=== PATIENT | female | born 1940 | race Caucasian/White ===

== ENCOUNTER 2016-05-03 11:00 | Inpatient (IN) | payer MEDICARE, BC ==
[2016-05-03] VITALS (8 sets, daily range): BP systolic 142–155; BP diastolic 68–87; PULSE 67–86; RESP 16–18; TEMP 97.3–98.1; O2SAT 96–99
[~2016-05-03] VITALS: Ht 154.9 cm; Wt 66.0 kg
[2016-05-03] MEDS ORDERED: HYDR-3516 PO (11:26)
--- NOTE | 2016-05-03 12:13 | PD ---
HPI Chief Complaint: Pain: Acute or Chronic Time Seen by Provider: 11:29 Travel History International Travel<30 days: No Contact w/Intl Traveler<30days: No Traveled to known affect area: No History of Present Illness HPI This is a 75-year-old female who is status post mechanical fall yesterday with a comminuted proximal humerus fracture who was seen yesterday at [facility] in [place]. The patient was discharged and told to find an outpatient orthopedic surgeon. The patient presents here today with complaints of severe pain. She states that she's been unable to obtain an orthopedic surgeon. She reports pain that's minimally relieved with the pain medicine she is prescribed. She denies any decreased sensation in her hand. She denies any other injuries. PFSH Past Medical History High Cholesterol: Yes Diminished Hearing: No Medical other: Yes (high cholesterol) Tetanus Vaccination: > 5 Years Influenza Vaccination: No ?: Not Menopausal: Yes Past Surgical History Surgical History: No Previous Surgery Social History Alcohol Use: No Tobacco Use: No Substance Use: No Allergies-Medications (Allergen,Severity, Reaction): Coded Allergies: No Known Allergies (Unverified , 05/03/16) Reported Meds & Prescriptions Reported Meds & Active Scripts Active Reported Hydrocodone-Acetaminophen 5-325 mg Tab 1 Tab PO Q6H PRN Review of Systems Except as stated in HPI: all other systems reviewed are Neg General / Constitutional: No: Fever, Chills HENT: No: Headaches, Neck Pain Cardiovascular: No: Chest Pain or Discomfort, Palpitations Respiratory: No: Shortness of Breath Gastrointestinal: No: Nausea, Vomiting, Abdominal Pain Musculoskeletal: Positive: Pain (right shoulder), No: Weakness Neurologic: No: Weakness, Sensory Disturbance Physical Exam Narrative GENERAL: Well-nourished, well-developed patient. SKIN: Warm and dry. HEAD: Normocephalic/atraumatic. EYES: No injection or drainage. NECK: Supple, trachea midline. CARDIOVASCULAR: Regular rate and rhythm without murmurs, gallops, or rubs. RESPIRATORY: Breath sounds equal bilaterally. No accessory muscle use. GASTROINTESTINAL: Abdomen soft, non-tender, nondistended. MUSCULOSKELETAL: Examination of the right shoulder, the patient has a sling in place. She is tender to touch in the proximal humerus distribution. There is deformity that looks suspicious for dislocation. NEUROLOGICAL: Awake and alert. Cranial nerves II through XII intact. Motor and sensory grossly within normal limits. Five out of 5 muscle strength in all muscle groups except right upper extremity which is in a sling. She does have equal joint cutter machine in her right hand.. Normal speech. Data Data Last Documented VS Vital Signs Date Time Temp Pulse Resp B/P Pulse Ox O2 Delivery O2 Flow Rate FiO2 05/03/16 12:45 97.8 78 17 142/71 99 Room Air Orders Shoulder, Limited(2vws) (05/03/16 12:13) Electrocardiogram (05/03/16 14:13) Complete Blood Count With Diff (05/03/16 14:13) Basic Metabolic Panel (Bmp) (05/03/16 14:13) Prothrombin Time / Inr (Pt) (05/03/16 14:13) Act Partial Throm Time (Ptt) (05/03/16 14:13) Urinalysis - C+S If Indicated (05/03/16 14:13) Chest, Single Ap (05/03/16 14:13) Type And Screen (05/03/16 14:13) Admit Order (Ed Use Only) (05/03/16 15:39) Labs Laboratory Tests Test 05/03/16 14:20 White Blood Count 9.3 TH/MM3 Red Blood Count 4.53 MIL/MM3 Hemoglobin 13.3 GM/DL Hematocrit 40.3 % Mean Corpuscular Volume 88.8 FL Mean Corpuscular Hemoglobin 29.3 PG Mean Corpuscular Hemoglobin 33.0 % Concent Red Cell Distribution Width 13.8 % Platelet Count 267 TH/MM3 Mean Platelet Volume 8.1 FL Neutrophils (%) (Auto) 72.1 % Lymphocytes (%) (Auto) 21.1 % Monocytes (%) (Auto) 6.6 % Eosinophils (%) (Auto) 0.0 % Basophils (%) (Auto) 0.2 % Neutrophils # (Auto) 6.7 TH/MM3 Lymphocytes # (Auto) 2.0 TH/MM3 Monocytes # (Auto) 0.6 TH/MM3 Eosinophils # (Auto) 0.0 TH/MM3 Basophils # (Auto) 0.0 TH/MM3 CBC Comment DIFF FINAL Differential Comment Prothrombin Time 11.3 SEC Prothromb Time International 1.0 RATIO Ratio Activated Partial 28.9 SEC Thromboplast Time Sodium Level 139 MEQ/L Potassium Level 4.1 MEQ/L Chloride Level 106 MEQ/L Carbon Dioxide Level 26.9 MEQ/L Anion Gap 6 MEQ/L Blood Urea Nitrogen 16 MG/DL Creatinine 0.57 MG/DL Estimat Glomerular Filtration 104 ML/MIN Rate Random Glucose 92 MG/DL Calcium Level 9.5 MG/DL Blood Type O POSITIVE Antibody Screen NEGATIVE Blood Bank Comment MDM Medical Decision Making Medical Screen Exam Complete: Yes Emergency Medical Condition: Yes Differential Diagnosis Fracture versus fracture dislocation versus dislocation only. Narrative Course 75-year-old female status post mechanical fall yesterday who was seen at [facility] and diagnosed with a comminuted proximal humerus fracture. The patient was discharged and told to find a orthopedic surgeon for follow up. The patient's made multiple calls and is unable to follow up with any orthopedic surgeon at this time. She comes here because of severe pain and concern that there may be dislocation. The patient's x-ray shows comminuted proximal humerus fracture involving the glenoid. The case was discussed with Dr. Phillip Boo who agrees patient should be admitted made nothing by mouth after midnight. He anticipates taking her to surgery tomorrow. This was discussed with both the patient and her family members and they're all agreeable for this. Diagnosis Primary Impression: right proximal comminuted humerus fracture Leo Padilla MD May 03, 2016 12:12
--- NOTE | 2016-05-03 13:10 | RADRPT ---
EXAM DATE/TIME: 05/03/2016 12:40 [facility] COMPARISON: No previous studies available for comparison. INDICATIONS : Fall. Right shoulder pain with limited mobility. MEDICAL HISTORY : None. SURGICAL HISTORY : None. ENCOUNTER: Initial ACUITY: 3 days PAIN SCORE: 9/10 LOCATION: Right proximal humerus FINDINGS: Two view examination of the right shoulder demonstrates comminuted fracture through the proximal alana brittany involving the head as well as the greater tuberosity. I do not see an obvious intra-articular ext ension at the humeral head does appear to be perched on the inferior aspect of the glenoid and may be partially dislocated. CONCLUSION: 1. Comminuted fracture through the humeral head/greater tuberosity. 2. I do not see obvious intra-articular extension on the 2 images provided. However, the humeral head is perched on the lower aspect of the glenoid and may be partially dislocated. Suhail Arriaza MD on May 03, 2016 at 12:49 Board Certified Radiologist. This report was verified electronically.
[2016-05-03 15:13] LABS: AUTOMATED NEUTROPHIL # 6.7 TH/MM3 (1.8-7.7); BASOPHIL % 0.2 % (0.0-2.0); HEMATOCRIT 40.3 % (35.0-46.0); HEMO FLAGS DIFF FINAL; LYMPH % 21.1 % (9.0-44.0); MEAN CELL VOLUME 88.8 FL (80.0-100.0); MEAN CORPUSCULAR HEMOGLOBIN 29.3 PG (27.0-34.0); MONO % 6.6 % (0.0-8.0); NEUT % 72.1 % (16.0-70.0); PLATELET COUNT 267 TH/MM3 (150-450); RED BLOOD COUNT 4.53 MIL/MM3 (4.00-5.30); RED CELL DISTRIBUTION WIDTH 13.8 % (11.6-17.2); WHITE BLOOD COUNT 9.3 TH/MM3 (4.0-11.0)
[2016-05-03 15:21] LABS: APTT (PATIENT) 28.9 SEC (24.3-30.1); PROTHROMBIN TIME - PATIENT 11.3 SEC (9.8-11.6)
[2016-05-03 15:22] LABS: BICARBONATE 26.9 MEQ/L (21.0-32.0); POTASSIUM 4.1 MEQ/L (3.5-5.1)
--- NOTE | 2016-05-03 15:52 | RADRPT ---
EXAM DATE/TIME: 05/03/2016 14:29 [facility] COMPARISON: SHOULDER RIGHT [facility] (2VWS), May 03, 2016, 12:40. INDICATIONS : Evaluate for pneumothorax, pneumonia or communicable disease. Preop chest for right shoulder surgery, right humeral head fracture MEDICAL HISTORY : Right humeral head fracture SURGICAL HISTORY : None. ENCOUNTER: Subsequent ACUITY: 1 day PAIN SCORE: 6/10 LOCATION: Bilateral chest FINDINGS: The heart is enlarged. The pulmonary vascular pattern is normal. The lungs are clear. There is an a cute fracture involving the right proximal humerus with minimal inferior displacement. There is no p neumothorax noted. CONCLUSION: 1. Cardiomegaly. 2. No acute focal pulmonary infiltrate or pulmonary vascular congestion. 3. Acute fracture involving the right proximal humerus with minimal inferior displacement. 4. No evidence of pneumothorax. Ede Ferrer MD on May 03, 2016 at 15:39 Board Certified Radiologist. This report was verified electronically.
--- NOTE | 2016-05-03 16:27 | HHI.HP ---
[facility] Service Family Medicine Primary Care Physician Non-Staff Admission Diagnosis right proximal humerus fracture/communuted Diagnoses: International Travel<30 Days: No Contact w/Intl Traveler<30days: No Known Affected Area: No History of Present Illness 75 y/o female with no significant PMHx presents to [facility] ED after suffering a fall. Last night 05/02/16, she was walking up a stair and tripped over her foot. She fell from a standing position and denies having a an outstretched arm. She never lost consciousness. She denies palpitations. She denies headaches at the current time. She says that she said it hit her head but not very hard. She has never broken a bone before. Last night, she did present to an outside emergency department, an x-ray was taken as well as a CT, which showed a fracture. She was supposed to schedule up as an outpatient with an orthopedic surgeon. Her pain was well not well controlled overnight with oral hydrocodone/ acetaminophen. Pain currently as a 10 out of 10. Pre-op: Able to walk "8 blocks," without getting short of breath, able to walk up a flight of stairs upcoming short of breath. (Gildardo Lema MD R2) Past Family Social History Past Medical History Only medications are multivitamins. High cholesterol, but refuses treatment. Past Surgical History Denies any previous surgeries, except for wisdom teeth. Denies problem with anesthesia. (Gildardo Lema MD R2) Allergies: Coded Allergies: No Known Allergies (Unverified , 05/03/16) Family History Noncontributory. Social History Denies recent tobacco use, denies alcohol use, denies illicit drug use. Moved here from [place] several years ago. (Gildardo Lema MD R2) Physical Exam Vital Signs Vital Signs Date Time Temp Pulse Resp B/P Pulse Ox O2 Delivery O2 Flow Rate FiO2 05/03/16 15:00 98.1 76 17 143/87 99 Room Air 05/03/16 12:45 97.8 78 17 142/71 99 Room Air 05/03/16 11:25 74 17 05/03/16 11:01 97.3 74 18 147/70 96 Room Air Physical Exam GENERAL: This is a well-nourished, well-developed patient. SKIN: No rashes, ecchymoses or lesions. HEAD: Atraumatic. Normocephalic. EYES: Pupils equal round and reactive. ENT: Nose without bleeding, purulent drainage or septal hematoma. NECK: Trachea midline. CARDIOVASCULAR: Regular rate and rhythm without murmurs, gallops, or rubs. RESPIRATORY: Clear to auscultation. GASTROINTESTINAL: Abdomen soft, non-tender, nondistended. MUSCULOSKELETAL: Right arm anteriorly displaced, abrasion on right forearm, NV intact moving all fingers, cap refill < 2 sec and brisk, full sensation. NEUROLOGICAL: Awake and alert. Cranial nerves II through XII intact. Motor and sensory grossly within normal limits. Five out of 5 muscle strength in all muscle groups. Normal speech. Laboratory Laboratory Tests Test 05/03/16 14:20 White Blood Count 9.3 Red Blood Count 4.53 Hemoglobin 13.3 Hematocrit 40.3 Mean Corpuscular Volume 88.8 Mean Corpuscular Hemoglobin 29.3 Mean Corpuscular Hemoglobin 33.0 Concent Red Cell Distribution Width 13.8 Platelet Count 267 Mean Platelet Volume 8.1 Neutrophils (%) (Auto) 72.1 Lymphocytes (%) (Auto) 21.1 Monocytes (%) (Auto) 6.6 Eosinophils (%) (Auto) 0.0 Basophils (%) (Auto) 0.2 Neutrophils # (Auto) 6.7 Lymphocytes # (Auto) 2.0 Monocytes # (Auto) 0.6 Eosinophils # (Auto) 0.0 Basophils # (Auto) 0.0 CBC Comment DIFF FINAL Differential Comment Prothrombin Time 11.3 Prothromb Time International 1.0 Ratio Activated Partial 28.9 Thromboplast Time Sodium Level 139 Potassium Level 4.1 Chloride Level 106 Carbon Dioxide Level 26.9 Anion Gap 6 Blood Urea Nitrogen 16 Creatinine 0.57 Estimat Glomerular Filtration 104 Rate Random Glucose 92 Calcium Level 9.5 Blood Type O POSITIVE Antibody Screen NEGATIVE Blood Bank Comment (Gildardo Lema MD R2) Result Diagram: 05/03/16 1420 05/03/16 1420 Imaging Last Impressions Shoulder X-Ray 05/03/16 1213 Signed Impressions: Service Date/Time: Tuesday, May 03, 2016 12:40 - CONCLUSION: 1. Comminuted fracture through the humeral head/greater tuberosity. 2. I do not see obvious intra-articular extension on the 2 images provided. However, the humeral head is perched on the lower aspect of the glenoid and may be partially dislocated. Suhail Arriaza MD (Gildardo Lema MD R2) Septic Shock Reassessment Heart: Regular rate and rhythm Lungs: Clear Skin: Warm Peripheral Pulses: Bounding Right Radial Bounding Left Radial Capillary Refill: <2 seconds (Gildardo Lema MD R2) Assessment and Plan Assessment and Plan 75 y/o female with PMHx of hypercholesterolemia presenting to [facility] ED after suffering a fall and landing on her right arm. Imaging showed a "comminuted fracture through the humeral head/greater tuberosity." The humeral head was also perched on the lower aspect of the glenoid, and may be partially dislocated. Orthopedic surgery was consulted, and planned to do a surgical correction in the a.m. Lab work all looked within normal limits, and her vital signs are at goal for her age. Problem #1: Comminuted fracture of right humeral head Orthopedic surgery has been consulted, we appreciate their assistance. Pain control with Percocet 10, 1 tablet pain 1 through 5, Percocet 10 2 tablets pain 6-10. Dilaudid 0.5 mg every 4 hours pain breakthrough. Medically optimized for surgery. Nothing by mouth at midnight, normal saline 100 ml/hr at midnight. #2: Hypercholesterolemia Does not wish to start medication for this problem. #3: Fluids electrolytes nutrition Fluids as above Electrolytes are at goal, will check BMP after surgery. Nothing by mouth after midnight. Advance diet as tolerated postop. DVT prophylaxis: Will hold preoperatively. sdw Dr. Davis, and Dr. Smita Mckeon. Code Status Full Code. (Gildardo Lema MD R2) Attending Attestation THIS CASE WAS DISCUSSED WITH THE RESIDENT PHYSICIANS. I HAVE REVIEWED THE RECORD AND AGREE WITH THE ABOVE NOTE AND PLAN OF CARE WAS DISCUSSED. I HAVE AUTHORIZED THE ORDER FOR ADMISSION TO AN IN-PATIENT STATUS. (Lew Davis MD) Problem List: (1) Humeral head fracture Status: Acute (2) Nutrition, metabolism, and development symptoms Status: Acute (3) Hypercholesteremia Status: Acute (4) Anterior dislocation of humerus, closed Status: Acute (Gildardo Lema MD R2) Physician Certification 2 Midnight Certification Type: Admission for Inpatient Services Order for Inpatient Services The services are ordered in accordance with Medicare regulations or non- Medicare payer requirements, as applicable. In the case of services not specified as inpatient-only, they are appropriately provided as inpatient services in accordance with the 2-midnight benchmark. Estimated LOS (days): 2 2 days is the estimated time the patient will need to remain in the hospital, assuming treatment plan goals are met and no additional complications. Post-Hospital Plan: Home (Gildardo Lema MD R2) Gildardo Lema MD R2 May 03, 2016 16:27 Lew Davis MD May 03, 2016 19:37
[2016-05-03] MEDS ORDERED: oxyCODONE/ACETAMINOPHEN 10 MG/325 MG TAB PO PRN (17:15)
[2016-05-03] MEDS ORDERED: HYDROmorphone HCL PF 1 MG/ML VIAL IV PUSH PRN (17:15)
--- NOTE | 2016-05-03 19:37 | HHI.HP ---
[facility] Service Family Medicine Primary Care Physician Non-Staff Admission Diagnosis right proximal humerus fracture/communuted Diagnoses: (1) Humeral head fracture (2) Nutrition, metabolism, and development symptoms (3) Hypercholesteremia (4) Anterior dislocation of humerus, closed International Travel<30 Days: No Contact w/Intl Traveler<30days: No Known Affected Area: No History of Present Illness 75 yo F presenting to the ED with a right shoulder injury found to be a comminuted fracture of the proximal humerus involving the glenoid. She tripped and fell yesterday evening, falling forward onto her anterior shoulder with immediate pain. She denies hitting her head and denies syncope/chest pain/ palpitations. She was seen at a different hospital last night, treated for her pain and discharged to follow up with orthopedics as an outpatient. She has been unable to find a surgeoun and has significant pain in the right shoulder and therefore came to the ED for further treatment. Case was discussed by the ED physician with orthopedics (Dr. Boo) who agrees to take patient to the OR tomorrow morning. Review of Systems Eyes: DENIES: Blurred vision, Double Vision Cardiovascular: DENIES: Chest pain, Palpitations, Syncope, Dyspnea on Exertion , Lower Extremity Edema Gastrointestinal: DENIES: Abdominal pain, Constipation, Diarrhea, Nausea, Vomiting Musculoskeletal: COMPLAINS OF: Joint pain, Muscle aches, Joint Swelling, DENIES: Back pain, Neck pain Past Family Social History Past Medical History Only medications are multivitamins. High cholesterol, but refuses treatment. Past Surgical History Denies any previous surgeries, except for wisdom teeth. Denies problem with anesthesia. Allergies: Coded Allergies: No Known Allergies (Unverified , 05/03/16) Family History Noncontributory. Social History Denies recent tobacco use, denies alcohol use, denies illicit drug use. Moved here from [place] several years ago. Physical Exam Vital Signs Vital Signs Date Time Temp Pulse Resp B/P Pulse Ox O2 Delivery O2 Flow Rate FiO2 05/03/16 19:00 75 16 148/68 96 Room Air 05/03/16 18:38 17 05/03/16 17:57 98.0 86 17 148/71 98 Room Air 05/03/16 17:27 99 21 05/03/16 15:00 98.1 76 17 143/87 99 Room Air 05/03/16 12:45 97.8 78 17 142/71 99 Room Air 05/03/16 11:25 74 17 05/03/16 11:01 97.3 74 18 147/70 96 Room Air Physical Exam GENERAL: This is a well-nourished, well-developed patient, sitting up in bed in NAD SKIN: No rashes, ecchymoses or lesions. Right elbow with small abrasion HEAD: Atraumatic. Normocephalic. EYES: Pupils equal round and reactive. NECK: Trachea midline. CARDIOVASCULAR: Regular rate and rhythm without murmurs, gallops, or rubs. RESPIRATORY: Clear to auscultation. GASTROINTESTINAL: Abdomen soft, non-tender, nondistended. MUSCULOSKELETAL: Right arm anteriorly displaced, abrasion on right forearm, NV intact moving all fingers, cap refill < 2 sec and brisk, full sensation. NEUROLOGICAL: Awake and alert. Cranial nerves II through XII intact. Laboratory Laboratory Tests Test 05/03/16 14:20 White Blood Count 9.3 Red Blood Count 4.53 Hemoglobin 13.3 Hematocrit 40.3 Mean Corpuscular Volume 88.8 Mean Corpuscular Hemoglobin 29.3 Mean Corpuscular Hemoglobin 33.0 Concent Red Cell Distribution Width 13.8 Platelet Count 267 Mean Platelet Volume 8.1 Neutrophils (%) (Auto) 72.1 Lymphocytes (%) (Auto) 21.1 Monocytes (%) (Auto) 6.6 Eosinophils (%) (Auto) 0.0 Basophils (%) (Auto) 0.2 Neutrophils # (Auto) 6.7 Lymphocytes # (Auto) 2.0 Monocytes # (Auto) 0.6 Eosinophils # (Auto) 0.0 Basophils # (Auto) 0.0 CBC Comment DIFF FINAL Differential Comment Prothrombin Time 11.3 Prothromb Time International 1.0 Ratio Activated Partial 28.9 Thromboplast Time Sodium Level 139 Potassium Level 4.1 Chloride Level 106 Carbon Dioxide Level 26.9 Anion Gap 6 Blood Urea Nitrogen 16 Creatinine 0.57 Estimat Glomerular Filtration 104 Rate Random Glucose 92 Calcium Level 9.5 Blood Type O POSITIVE Antibody Screen NEGATIVE Blood Bank Comment Result Diagram: 05/03/16 1420 05/03/16 1420 Imaging Last Impressions Shoulder X-Ray 05/03/16 1213 Signed Impressions: Service Date/Time: Tuesday, May 03, 2016 12:40 - CONCLUSION: 1. Comminuted fracture through the humeral head/greater tuberosity. 2. I do not see obvious intra-articular extension on the 2 images provided. However, the humeral head is perched on the lower aspect of the glenoid and may be partially dislocated. Suhail Arriaza MD Assessment and Plan Assessment and Plan 75 y/o female with PMHx of hypercholesterolemia presenting to [facility] ED after suffering a fall and landing on her right arm. Imaging showed a "comminuted fracture through the humeral head/greater tuberosity." The humeral head was also perched on the lower aspect of the glenoid, and may be partially dislocated. Orthopedic surgery was consulted, and planned to do a surgical correction in the a.m. Lab work all looked within normal limits, and her vital signs are at goal for her age. Problem List: (1) Humeral head fracture Status: Acute Plan: Orthopedic surgery has been consulted, we appreciate their assistance. Pain control with Percocet 10, 1 tablet pain 1 through 5, Percocet 10 2 tablets pain 6-10. Dilaudid 0.5 mg every 4 hours pain breakthrough. Medically optimized for surgery. Nothing by mouth at midnight, normal saline 100 ml/hr at midnight. (2) Anterior dislocation of humerus, closed Status: Acute Plan: Treatment as above for fracture (3) Hypercholesteremia Status: Acute Plan: Does not wish to start medication for this problem. (4) Nutrition, metabolism, and development symptoms Status: Acute Plan: Fluids as above Electrolytes are at goal, will check BMP after surgery. Nothing by mouth after midnight. Advance diet as tolerated postop. DVT prophylaxis: Will hold preoperatively. Physician Certification 2 Midnight Certification Type: Admission for Inpatient Services Order for Inpatient Services The services are ordered in accordance with Medicare regulations or non- Medicare payer requirements, as applicable. In the case of services not specified as inpatient-only, they are appropriately provided as inpatient services in accordance with the 2-midnight benchmark. Estimated LOS (days): 2 2 days is the estimated time the patient will need to remain in the hospital, assuming treatment plan goals are met and no additional complications. Post-Hospital Plan: Not yet determined Lew Davis MD May 03, 2016 19:37
[2016-05-03 22:00] LABS: BLOOD, URINE NEG (NEG); COMMENT (UR) CULT NOT INDICATED; CULTURE IF INDICATED CULT NOT INDICATED; GLUCOSE,URINE NEG (NEG); KETONE, URINE 10 mg/dL (NEG); MUCUS URINE FEW /lpf (OCC); NITRITE,URINE NEG (NEG); SQUAMOUS EPITHELIAL CELL URINE 1 /hpf (0-5); URINE COLOR YELLOW (YELLW/STRAW)
[2016-05-04] MEDS: SODIUM CHLOR 0.9% 1000 ML INJ 1,000 ML IV SCH ×2 (00:02→10:00)
[2016-05-04 00:13] VITALS: BP 190/87; PULSE 78; RESP 18; TEMP 97.8; O2SAT 98
[2016-05-04 03:35] VITALS: BP 197/85; PULSE 89; RESP 18; TEMP 97.8; O2SAT 98
[2016-05-04] MEDS ORDERED: ENALAPRILAT 1.25 MG/ML VIAL IV PUSH PRN (04:45)
[2016-05-04] MEDS: oxyCODONE/ACETAMINOPHEN 10 MG/325 MG TAB PO PRN ×2 (05:09→10:34)
[2016-05-04 05:24] LABS: AUTOMATED NEUTROPHIL # 4.6 TH/MM3 (1.8-7.7); BASOPHIL % 0.2 % (0.0-2.0); EOSINOPHIL % 0.5 % (0.0-4.0); HEMATOCRIT 38.5 % (35.0-46.0); HEMO FLAGS DIFF FINAL; LYMPH % 33.7 % (9.0-44.0); LYMPHOCYTE # 2.8 TH/MM3 (1.0-4.8); MEAN CELL VOLUME 88.7 FL (80.0-100.0); MEAN CORPUSCULAR HEMOGLOBIN 30.3 PG (27.0-34.0); MEAN CORPUSCULAR HGB CONC 34.1 % (32.0-36.0); MONO % 10.9 % (0.0-8.0); NEUT % 54.7 % (16.0-70.0); PLATELET COUNT 257 TH/MM3 (150-450); RED BLOOD COUNT 4.34 MIL/MM3 (4.00-5.30); WHITE BLOOD COUNT 8.4 TH/MM3 (4.0-11.0)
[2016-05-04 05:49] LABS: BICARBONATE 23.6 MEQ/L (21.0-32.0); MAGNESIUM 2.5 MG/DL (1.5-2.5); POTASSIUM 3.7 MEQ/L (3.5-5.1)
[2016-05-04] MEDS ORDERED: ENALAPRILAT 1.25 MG/ML VIAL IV PUSH ONE (06:30)
[2016-05-04] MEDS ORDERED: hydrALAZINE HCL 10 MG TAB PO PRN (07:00)
[2016-05-04] MEDS ORDERED: hydrALAZINE HCL 10 MG TAB PO ONE (07:00)
--- NOTE | 2016-05-04 07:06 | PD.ORT.PN ---
Subjective Subjective Remarks s/p fall at home right shoulder pain. Objective Vitals Vital Signs Date Time Temp Pulse Resp B/P Pulse Ox O2 Delivery O2 Flow Rate FiO2 05/04/16 03:35 97.8 89 18 197/85 98 05/04/16 00:13 97.8 78 18 190/87 98 05/03/16 23:00 67 16 154/71 97 Room Air 05/03/16 21:00 76 16 155/76 96 Room Air 05/03/16 19:00 75 16 148/68 96 Room Air 05/03/16 18:38 17 05/03/16 17:57 98.0 86 17 148/71 98 Room Air 05/03/16 17:27 99 21 05/03/16 15:00 98.1 76 17 143/87 99 Room Air 05/03/16 12:45 97.8 78 17 142/71 99 Room Air 05/03/16 11:25 74 17 05/03/16 11:01 97.3 74 18 147/70 96 Room Air Result Diagram: 05/04/16 0500 05/04/16 0500 Other Results Laboratory Tests Test 05/03/16 14:20 Prothrombin Time 11.3 SEC (9.8-11.6) Prothromb Time International 1.0 RATIO Ratio Imaging Last 24 hours Impressions Chest X-Ray 05/03/16 1413 Signed Impressions: Service Date/Time: Tuesday, May 03, 2016 14:29 - CONCLUSION: 1. Cardiomegaly. 2. No acute focal pulmonary infiltrate or pulmonary vascular congestion. 3. Acute fracture involving the right proximal humerus with minimal inferior displacement. 4. No evidence of pneumothorax. Ede Ferrer MD Shoulder X-Ray 05/03/16 1213 Signed Impressions: Service Date/Time: Tuesday, May 03, 2016 12:40 - CONCLUSION: 1. Comminuted fracture through the humeral head/greater tuberosity. 2. I do not see obvious intra-articular extension on the 2 images provided. However, the humeral head is perched on the lower aspect of the glenoid and may be partially dislocated. Suhail Arriaza MD Objective Remarks RUE: +swelling shoulder and arm. pain with motion of elbow. NVI Assessment & Plan Assessment and Plan 1) Right Proximal Humerus Fx -NWB -maintain sling -CT from [facility] reviewed -plan for nonop treatment -ortho cleared for discharge -f/u with [facility] or [facility] in 2 weeks Rony Matrinez May 04, 2016 07:06
[2016-05-04 07:47] VITALS: BP 142/69; PULSE 87; RESP 20; TEMP 97.6; O2SAT 96
[2016-05-04] MEDS ORDERED: PERI8.6T PO (10:32)
[2016-05-04] MEDS ORDERED: OXYC1TAB36 PO (10:32)
--- NOTE | 2016-05-04 10:33 | HHI.DCPOC ---
Discharge Care Plan Diagnosis: (1) Humeral head fracture Goals to Promote Your Health * To prevent worsening of your condition and complications, follow up with orthopedic surgery in 2 weeks. Wear brace unless in the shower. Directions to Meet Your Goals Take your medications as prescribed Follow your dietary instruction Follow activity as directed Keep your appointments as scheduled Take your immunizations and boosters as scheduled If your symptoms worsen call your PCP, if no PCP go to Urgent Care Center or Emergency Room Smoking is Dangerous to Your Health. Avoid second hand smoke Call the 24-hour hour crisis hotline for domestic abuse at Mae Uriarte MD May 04, 2016 10:33
--- NOTE | 2016-05-04 11:04 | EKG ---
Date Performed: 05/03/2016 Time Performed: 14:47:19 PTAGE: 75 years EKG: Sinus rhythm NONSPECIFIC T-WAVE ABNORMALITY ABNORMAL ECG NO PREVIOUS TRACING DOCTOR: Ulysses Yuen Interpretating Date/Time 05/04/2016 11:02:49
--- NOTE | 2016-05-04 11:06 | MB ---
cc: OLIVIA TALLEY DATE OF CONSULTATION: 05/04/2016 REASON FOR CONSULTATION Right proximal humerus fracture. HISTORY OF PRESENT ILLNESS Arith is a 75-year-old female who had a fall 2 days ago. She lost her balance and fell. She landed on her right shoulder. She had immediate right hip pain. She was initially seen at [facility] in [place]. X-rays and CT scans revealed a mildly comminuted right proximal humerus fracture. She was referred as an outpatient to see an orthopedic surgeon in [place]. She apparently had some difficulty with pain and presented to [facility]. She is currently awake and alert in the emergency department. Her only complaint is her right shoulder. Pain is worse with movement and is improved with rest. She denies any dizziness, syncope or loss of consciousness. She describes a mechanical fall. PAST MEDICAL HISTORY ILLNESSES High cholesterol. MEDICATIONS Multivitamin. SURGERIES [place] teeth extraction. ALLERGIES NO KNOWN DRUG ALLERGIES. FAMILY HISTORY Noncontributory. SOCIAL HISTORY The patient denies alcohol, tobacco or drug use. She is originally from [place]. REVIEW OF SYSTEMS The patient denies headache, visual changes, neck pain, chest pain, shortness of breath, abdominal pain, nausea, vomiting or recent weight loss. She complains of right shoulder pain. Pain is worse with movement. PHYSICAL EXAMINATION GENERAL: The patient is a well-developed, well-nourished 75-year-old female who is awake and alert. She is in no acute distress. She appears well-developed, well-nourished. VITAL SIGNS: Temperature 97.6, pulse 87, respirations 20, blood pressure 142/69, O2 sat 96% on room air. HEAD: The patient is normocephalic. Pupils are equal. NECK: Soft, nontender. Trachea is midline. ABDOMEN: Soft, nontender, nondistended. EXTREMITIES: Examination of the right arm reveals swelling and bruising around her shoulder. She has no pain on her elbow, wrist or hand. She has intact sensation in all fingers. She has good cap refill in all fingers. Skin is intact. Sensation is intact in the radial, ulnar and median nerve distributions. Radial pulse is palpable. Examination of left arm reveals no pain with shoulder, elbow or wrist motion. Skin is intact. Radial pulse is palpable. Sensation is intact in all fingers. Examination of bilateral lower extremities reveals no significant pain with hip, knee or ankle motion. Skin is intact to both feet. Dorsalis pedis pulses are palpable. Skin is intact. X-RAYS X-rays and CT scan of right shoulder were reviewed. X-rays reveal a mildly comminuted proximal humerus fracture. Overall the fracture is relatively well-aligned. There is mild displacement of the greater tuberosity fragment. The glenohumeral joint is reduced. IMPRESSION Mildly comminuted right proximal humerus fracture. PLAN Treatment options were discussed with the patient. I discussed surgical and nonsurgical options. At this point fracture is relatively well-aligned. I explained to her that nonoperative treatment would likely yield a very similar result as operative treatment. The risks of surgery including bleeding, infection, injuries to arteries, nerves and blood vessels, nonunion, malunion, painful hardware, stiffness as well as medical complications including blood clot, stroke, heart attack and were discussed. At this point the patient is agreeable with nonoperative treatment. She will need to remain in a sling and swathe. She cannot use her right arm for any activities or she risks displacing fracture. She may follow up in the office in 1-2 weeks for repeat x-rays and exam. All questions were answered. A mid-level provider in my office, nurse practitioner or PA, may see this patient on a follow-up basis and continue to implement the objective of this plan including: Starting or adjusting medications, injections of muscle, tendon, bursa or joints, cast application, orthotic or brace application, physical therapy, further radiographic studies including x-ray, MRI, CT, ultrasounds or bone scan, vascular studies, neurologic studies, or other specialist consultations, and proceeding with surgical management as appropriate. MD BRENNA Berger/CONRADO /10:39 AM /10:49 AM
[2016-05-04 11:40] VITALS: BP 120/70; PULSE 78; RESP 18; TEMP 97.4; O2SAT 95
--- NOTE | 2016-05-04 11:58 | HHI.FPPN ---
Subjective Remarks Patient was seen and examined this morning. She did not have any new complaints. States that the right arm is painful to move but managed well with pain medications. She denies any new systemic symptoms including fevers, chills today. (Smita Uriarte MD R1) Objective Vitals Vital Signs Date Time Temp Pulse Resp B/P Pulse Ox O2 Delivery O2 Flow Rate FiO2 05/04/16 11:40 97.4 78 18 120/70 95 05/04/16 07:47 97.6 87 20 142/69 96 05/04/16 03:35 97.8 89 18 197/85 98 05/04/16 00:13 97.8 78 18 190/87 98 05/03/16 23:00 67 16 154/71 97 Room Air 05/03/16 21:00 76 16 155/76 96 Room Air 05/03/16 19:00 75 16 148/68 96 Room Air 05/03/16 18:38 17 05/03/16 17:57 98.0 86 17 148/71 98 Room Air 05/03/16 17:27 99 21 05/03/16 15:00 98.1 76 17 143/87 99 Room Air 05/03/16 12:45 97.8 78 17 142/71 99 Room Air (Smita Uriarte MD R1) Result Diagram: 05/04/16 0500 05/04/16 0500 Imaging Last Impressions Chest X-Ray 05/03/16 1413 Signed Impressions: Service Date/Time: Tuesday, May 03, 2016 14:29 - CONCLUSION: 1. Cardiomegaly. 2. No acute focal pulmonary infiltrate or pulmonary vascular congestion. 3. Acute fracture involving the right proximal humerus with minimal inferior displacement. 4. No evidence of pneumothorax. Ede Ferrer MD Shoulder X-Ray 05/03/16 1213 Signed Impressions: Service Date/Time: Tuesday, May 03, 2016 12:40 - CONCLUSION: 1. Comminuted fracture through the humeral head/greater tuberosity. 2. I do not see obvious intra-articular extension on the 2 images provided. However, the humeral head is perched on the lower aspect of the glenoid and may be partially dislocated. Suhail Arriaza MD Objective Remarks GENERAL: This is a well-nourished, well-developed patient, sitting up in bed in NAD. Sling on right arm SKIN: No rashes, ecchymoses or lesions. Right elbow with small abrasion HEAD: Atraumatic. Normocephalic. EYES: Pupils equal round and reactive. NECK: Trachea midline. CARDIOVASCULAR: Regular rate and rhythm without murmurs, gallops, or rubs. RESPIRATORY: Clear to auscultation without wheezes or crackles. GASTROINTESTINAL: Abdomen soft, non-tender, nondistended. MUSCULOSKELETAL: Right arm anteriorly displaced, abrasion on right forearm, NV intact moving all fingers, cap refill < 2 sec and brisk, full sensation. She is in a sling with elbow at approximately 90. NEUROLOGICAL: Awake and alert. Cranial nerves II through XII intact. Medications and IVs Inpatient Medications Enalaprilat (Vasotec Inj) 1.25 mg ONCE ONCE IV PUSH ; Start 05/04/16 at 06:30 ; Stop 05/04/16 at 06:31; Status DC Hydralazine HCl (Apresoline) 10 mg Q6HR PRN PO SBP>180, DBP>95; Start 05/04/16 at 07:00 Hydromorphone HCl (Dilaudid Pf Inj) 0.5 mg Q4H PRN IV PUSH BREAKTHROUGH PAIN Last administered on 05/03/16 18:08; Start 05/03/16 at 17:15 Oxycodone/ Acetaminophen (Percocet 10-325 Mg) 2 tab Q4H PRN PO PAIN 6-10; Start 05/03/16 at 17:15 Sodium Chloride (NS 1000 ml Inj) 1,000 ml @ 100 mls/hr Q10H IV Last administered on 05/04/16 00:02; Start 05/04/16 at 00:00 (Smita Uriarte MD R1) A/P Assessment and Plan 75 y/o female with PMHx of hypercholesterolemia presenting to [facility] after suffering a fall and landing on her right arm. Imaging showed a "comminuted fracture through the humeral head/greater tuberosity." The humeral head was also perched on the lower aspect of the glenoid, and may be partially dislocated. Orthopedic surgery was consulted, and planned to do a surgical correction in the a.m. Lab work all looked within normal limits, and her vital signs are at goal for her age. (Smita Uriarte MD R1) Attending Attestation Pt. examined and case discussed with resident physician I have read the above note and agree with the assessment/plan as discussed with me I was involved in all medical decision making for this patient Lew Davis MD (Lew Daivs MD) Problem List: (1) Humeral head fracture Status: Acute Plan: Orthopedic surgery has been consulted, we appreciate their assistance. The fracture is at this point well aligned and their assessment was that a nonoperative treatment strategy would feel very similar results as an operative treatment. Patient and surgeon have agreed to out for nonoperative management with sling immobilization and close follow-up. Pain control with Percocet 10, 1 tablet pain 1 through 5, Percocet 10 2 tablets pain 6-10. Dilaudid 0.5 mg every 4 hours pain breakthrough. She'll be discharged with Percocet for pain medication and follow-up in 2 weeks with orthopedic surgery. (2) Anterior dislocation of humerus, closed Status: Acute Plan: Treatment as above for fracture (3) Hypercholesteremia Status: Acute Plan: Does not wish to start medication for this problem. (4) Nutrition, metabolism, and development symptoms Status: Acute Plan: By mouth hydration Electrolytes within normal limits Regular diet No DVT prophylaxis given will be discharged today (Smita Uriarte MD R1) Problem Qualifiers (1) Humeral head fracture: Qualified Code: S42.291A - Humeral head fracture, right, closed, initial encounter Smita Uriarte MD R1 May 04, 2016 11:58 Lew Davis MD May 04, 2016 21:43
== END 2016-05-04 14:25 | disposition home or self-care (01) | DRG 563 ==
LOC: NEPE 11:00 → NEDA 15:41 → NEDH 20:57 → NEPGCP 23:54
PROVIDERS: ADMIT Family Medicine; ATTEND Family Medicine
DX: S42.251A Displaced fracture of greater tuberosity of right humerus, initial encounter for closed fracture (principal); E78.00 Pure hypercholesterolemia, unspecified; W18.39XA Other fall on same level, initial encounter; Y92.009 Unspecified place in unspecified non-institutional (private) residence as the place of occurrence of the external cause
CPT/HCPCS: 71010; 73030; 80048; 81001; 83735; 84100; 85025; 85610; 85730; 86850; 86900; 86901; 93005; 99284; J1170; J7030